=== PATIENT | female | born 1965 | race Asian ===

== ENCOUNTER 2018-02-06 11:51 | Emergency (ER) | payer OTHER ==
[~2018-02-06] VITALS: Ht 160 cm; Wt 56.8 kg
[2018-02-06] MEDS ORDERED: ATOR10TA84 PO (12:16)
[2018-02-06] MEDS ORDERED: PIOG15TA6 PO (12:16)
[2018-02-06 12:19] LABS: GLUCOSE,POINT OF CARE 122 MG/DL (70-110)
[2018-02-06] MEDS ORDERED: ACETAMINOPHEN 325 MG TABLET PO ONE (14:00)
[2018-02-06] MEDS ORDERED: IBUPROFEN 600 MG TABLET PO ONE (14:00)
[2018-02-06 14:40] VITALS: BP 124/80
== END 2018-02-06 14:41 | disposition home or self-care (01) ==
LOC: EMS 11:53
DX: R51 Headache (principal); E11.9 Type 2 diabetes mellitus without complications; E78.00 Pure hypercholesterolemia, unspecified

== ENCOUNTER 2018-10-10 13:05 | Emergency (ER) | payer OTHER ==
[~2018-10-10] VITALS: Ht 160 cm; Wt 59.0 kg
[~2018-10-10 13:05] MED LIST: ATOR10TA84 PO; PIOG15TA6 PO
[2018-10-10 13:47] VITALS: BP 131/84
== END 2018-10-10 13:59 | disposition home or self-care (01) ==
LOC: EMS 13:08
DX: H60.92 Unspecified otitis externa, left ear (principal); E78.00 Pure hypercholesterolemia, unspecified